=== PATIENT | female | born 1970 | race Caucasian/White ===

== ENCOUNTER 2016-06-20 10:27 | Emergency (ER) | payer OTHER ==
[~2016-06-20] VITALS: Ht 154.9 cm; Wt 83.5 kg
[~2016-06-20 10:27] MED LIST: ACCUNEB 0.1.25 MG/3; ADIPEX-P37.5 MG PO; AMOXICILLIN500 M2 PO; BENTYL10 MG PO; CLARITIN10 MG PO; COMBIVENT1 ARO; DIFLUCAN150 MG PO; LASIX40 MG PO; MEDROL DOSEPAK4 MG PO; PRILOSEC20 M1; PRILOSEC20 M1 PO; PROTONIX20 MG PO; VICODIN 5/500 505 MG; VICODIN 5/500 505 MG PO; VOLTAREN50 M1 PO; VOLTAREN50 MG PO; ZITHROMAX Z PA250 MG PO; ZOFRAN4 MG PO
[2016-06-20] MEDS ORDERED: VITAMIN D50000 I3 PO (10:45)
[2016-06-20 12:14] LABS: BILIRUBIN NEGATIVE (NEGATIVE); BLOOD NEGATIVE (NEGATIVE); CLARITY SL CLOUDY (CLEAR); COLOR YELLOW (YELLOW); GLUCOSE NEGATIVE (NEGATIVE); KETONE NEGATIVE (NEGATIVE); LEUKO ESTERASE NEGATIVE (NEGATIVE); NITRITE NEGATIVE (NEGATIVE); PROTEIN NEGATIVE (NEGATIVE); SPECIFIC GRAVITY >= 1.030 (1.005-1.030); UROBILINOGEN 0.2 E.U./dl (0.2-1.0)
[2016-06-20 12:50] LABS: BACTERIA TRACE; MUCOUS TRACE; URINE REFLEX COMMENT NO (NO)
[2016-06-20] MEDS ORDERED: NAPROSYN500 MG PO (12:53)
[2016-06-20] MEDS ORDERED: MEDROL DOSEPAK4 MG PO (12:53)
[2016-06-20] MEDS ORDERED: CYCLOBENZAPRINE10 MG PO (12:53)
== END 2016-06-20 13:20 | disposition home or self-care (01) ==
LOC: ED 10:27
PROVIDERS: Nurse Practitioner Family
DX: M54.5 Low back pain (principal); Z90.49 Acquired absence of other specified parts of digestive tract

== ENCOUNTER 2019-02-05 08:37 | Emergency (ER) | payer OTHER ==
[~2019-02-05] VITALS: Ht 157.4 cm; Wt 74.8 kg
--- NOTE | ~2019-02-05 | EKG ---
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
[~2019-02-05 08:37] MED LIST changes: +CYCLOBENZAPRINE10 MG PO; +NAPROSYN500 MG PO; +VITAMIN D50000 I3 PO
[2019-02-05 08:59] LABS: BASO # 0.1 10*3/uL (0.0-0.1); BASO % 0.6 % (0.0-1.0); EOS # 0.2 10*3/uL (0.0-0.4); EOS % 1.7 % (1.0-4.0); HEMATOCRIT 42.9 % (37.0-47.0); HEMOGLOBIN 13.7 g/dl (12.0-16.0); LYMPH % 23.4 % (27.0-41.0); MEAN CELL VOLUME 89.7 fl (81.0-99.0); MEAN CORPUSCULAR HGB 28.7 pg (27.0-31.0); MEAN CORPUSCULAR HGB CONC 31.9 g/dl (33.0-37.0); MEAN PLATELET VOLUME 12.7 fl (9.6-12.3); MONO # 0.4 10*3/uL (0.1-1.0); MONO % 4.5 % (3.0-9.0); NEUT % 69.6 % (47.0-73.0); PLATELET COUNT AUTOMATED 243 10*3/uL (130-400); RED BLOOD COUNT 4.78 10*6/uL (4.10-5.10); RED CELL DISTRI WIDTH 13.9 % (0-14.5); WHITE BLOOD COUNT 8.7 10*3/uL (4.8-10.8)
[2019-02-05 09:14] LABS: ACT PARTIAL THROMBO TIME 26.1 SECONDS (20.0-32.1); INTERNATIONAL NORM RATIO 0.9 (2.0-3.5)
[2019-02-05 09:17] LABS: ALBUMIN 3.8 gm/dl (3.1-4.5); ALKALINE PHOSPHATASE 105 U/L (45-117); BUN 14 mg/dl (7-24); CHLORIDE 108 mmol/L (98-107); CREATININE 0.87 mg/dL (0.55-1.02); SGOT/AST 9 IU/L (3-35); SGPT/ALT 19 U/L (12-78); SODIUM 140 mmol/L (136-145); TOTAL PROTEIN 7.8 gm/dL (6.4-8.2)
[2019-02-05 09:18] LABS: TROPONIN I < 0.015 ng/ml (<0.045)
[2019-02-05] MEDS ORDERED: SPIRIVA -- 3018 MCG INH (09:30)
[2019-02-05] MEDS ORDERED: VIBRAMYCIN100 MG PO (09:30)
[2019-02-05] MEDS ORDERED: PROVENTIL HFA6.7 GM INH (09:30)
[2019-02-05] MEDS ORDERED: PREDNISONE50 MG PO (09:30)
[2019-02-05 09:34] VITALS: BP 155/77
[2019-02-05] MEDS ORDERED: TESSALON PERLE100 MG PO (10:01)
== END 2019-02-05 10:00 | disposition home or self-care (01) ==
LOC: ED 08:37
PROVIDERS: Emergency Medicine
DX: J44.1 Chronic obstructive pulmonary disease with (acute) exacerbation (principal); K21.9 Gastro-esophageal reflux disease without esophagitis; Z87.891 Personal history of nicotine dependence; Z79.899 Other long term (current) drug therapy

== ENCOUNTER → 2019-12-06 | Outpatient (CLI) | payer OTHER ==
[~2019-12-06] MED LIST changes: +PREDNISONE50 MG PO; +PROVENTIL HFA6.7 GM INH; +SPIRIVA -- 3018 MCG INH; +TESSALON PERLE100 MG PO; +VIBRAMYCIN100 MG PO
== END | disposition home or self-care (01) ==
LOC: CT 11-19 09:00
PROVIDERS: ATTEND Nurse Practitioner Primary Care
DX: R19.7 Diarrhea, unspecified (principal); R11.0 Nausea; R10.84 Generalized abdominal pain

== ENCOUNTER → 2020-06-02 | Outpatient (CLI) | payer OTHER | END | disposition home or self-care (01) | LOC: COVID19 12:57 | PROVIDERS: ATTEND Nurse Practitioner Primary Care | DX: Z20.822 Contact with and (suspected) exposure to COVID-19 (principal); J40 Bronchitis, not specified as acute or chronic ==

== ENCOUNTER → 2020-10-18 | Outpatient (CLI) | payer OTHER ==
[2020-10-18 09:15] LABS: HEMATOCRIT 44.3 % (37.0-47.0); MEAN CELL VOLUME 90.2 fl (81.0-99.0); MEAN CORPUSCULAR HGB 29.1 pg (27.0-31.0); MEAN CORPUSCULAR HGB CONC 32.3 g/dl (33.0-37.0); MEAN PLATELET VOLUME 12.8 fl (9.6-12.3); RED BLOOD COUNT 4.91 10*6/uL (4.10-5.10); RED CELL DISTRI WIDTH 13.5 % (0-14.5); WHITE BLOOD COUNT 7.7 10*3/uL (4.8-10.8)
[2020-10-18 09:52] LABS: ALBUMIN 3.5 gm/dl (3.1-4.5); BUN 12 mg/dl (7-24); CHLORIDE 110 mmol/L (98-107); POTASSIUM 4.3 mmol/L (3.5-5.1); SGOT/AST 11 IU/L (3-35); SGPT/ALT 18 U/L (12-78); SODIUM 137 mmol/L (136-145); TOTAL PROTEIN 7.3 gm/dL (6.4-8.2)
[2020-10-18 09:53] LABS: ALKALINE PHOSPHATASE 101 U/L (45-117)
[2020-10-19 16:18] LABS: ATYPICAL PANCA <1:20 titer (Neg:<1:20)
[2020-10-20 12:07] LABS: SACCHAROMYCES CEREVISIAE IGA <20.0 Units (0.0-24.9)
== END | disposition home or self-care (01) ==
LOC: LAB 08:21
PROVIDERS: ATTEND Nurse Practitioner Family
DX: R19.7 Diarrhea, unspecified (principal)

== ENCOUNTER 2021-04-16 11:45 | Emergency (ER) | payer OTHER ==
[~2021-04-16] VITALS: Wt 72.6 kg
[2021-04-16 11:56] VITALS: BP 132/88
[2021-04-16] MEDS ORDERED: KENALOG 0.025%15 GM T (12:05)
== END 2021-04-16 12:08 | disposition home or self-care (01) ==
LOC: ED 11:45
DX: R21 Rash and other nonspecific skin eruption (principal); Z98.890 Other specified postprocedural states; Z79.899 Other long term (current) drug therapy

== ENCOUNTER → 2022-05-25 | Outpatient (CLI) | payer OTHER ==
[~2022-05-25] MED LIST changes: +KENALOG 0.025%15 GM T
== END | disposition home or self-care (01) ==
LOC: RAD 14:25
PROVIDERS: ATTEND Nurse Practitioner Family
DX: S49.92XA Unspecified injury of left shoulder and upper arm, initial encounter (principal); S29.9XXA Unspecified injury of thorax, initial encounter; X58.XXXA Exposure to other specified factors, initial encounter; Y93.89 Activity, other specified; Y92.89 Other specified places as the place of occurrence of the external cause; Y99.8 Other external cause status

== ENCOUNTER → 2022-11-28 | Outpatient (CLI) | payer OTHER | END | disposition home or self-care (01) | LOC: MAMMO 11-16 08:00 → US 11-16 09:00 → MAMMO 00:15 | PROVIDERS: ATTEND Internal Medicine | DX: N63.20 Unspecified lump in the left breast, unspecified quadrant (principal); R22.30 Localized swelling, mass and lump, unspecified upper limb; R59.9 Enlarged lymph nodes, unspecified ==

== ENCOUNTER 2024-07-16 10:14 | Inpatient (IN) | payer OTHER ==
[~2024-07-16] VITALS: Ht 157.4 cm; Wt 55.4 kg
[2024-07-16 10:18] VITALS: BP 120/83
[2024-07-16] MEDS ORDERED: TOPIRAMATE25 M3 PO (10:37)
[2024-07-16 11:07] LABS: BASO % 0.5 % (0.0-1.0); EOS # 0.1 10*3/uL (0.0-0.4); EOS % 1.4 % (1.0-4.0); HEMATOCRIT 45.8 % (37.0-47.0); MEAN CELL VOLUME 90.9 fl (81.0-99.0); MEAN CORPUSCULAR HGB 29.6 pg (27.0-31.0); MEAN CORPUSCULAR HGB CONC 32.5 g/dl (33.0-37.0); MEAN PLATELET VOLUME 11.5 fl (9.6-12.3); MONO # 0.5 10*3/uL (0.1-1.0); NEUT # 4.8 10*3/uL (2.3-7.9); NEUT % 62.7 % (47.0-73.0); PLATELET COUNT AUTOMATED 287 10*3/uL (130-400); RED BLOOD COUNT 5.04 10*6/uL (4.10-5.10); RED CELL DISTRI WIDTH 13.6 % (0-14.5); WHITE BLOOD COUNT 7.6 10*3/uL (4.8-10.8)
[2024-07-16 11:22] LABS: ACT PARTIAL THROMBO TIME 25.5 SECONDS (20.0-32.1)
[2024-07-16 11:27] LABS: ALKALINE PHOSPHATASE 101 U/L (46-116); BUN 14 mg/dl (9-23); CHLORIDE 108 mmol/L (98-107); CPK 82 U/L (34-171); LIPASE 77 U/L (12-53); POTASSIUM 3.7 mmol/L (3.4-5.1); SGPT/ALT 10 U/L (5-49); TOTAL PROTEIN 7.2 gm/dL (6.0-8.0)
[2024-07-16 11:37] LABS: ETHYL ALCOHOL < 3.0 mg/dl (<3)
[2024-07-16] MEDS ORDERED: diazePAM 10 MG/2 ML SYR IV ONE (11:45)
[2024-07-16] MEDS ORDERED: SODIUM CHLORIDE 0.9% 1,000 ML IV ONE (11:45)
[2024-07-16 13:50] LABS: BILIRUBIN Negative (Negative); BLOOD Negative (Negative); CLARITY Clear (Clear); COLOR Yellow (Yellow); GLUCOSE Negative (Negative); KETONE Negative (Negative); LEUKO ESTERASE Negative (Negative); NITRITE Negative (Negative); UROBILINOGEN 0.2 E.U./dl (0.0-1.0)
[2024-07-16 13:54] LABS: URINE AMPHETAMINES Negative (1000ng/ml); URINE BARBITURATES Negative (200ng/ml); URINE BENZODIAZEPINES Positive (200ng/ml); URINE CANNABINOIDS (THC) Positive (50ng/ml); URINE COCAINE Negative (300ng/ml); URINE METHADONE Negative (300ng/ml); URINE OPIATES Positive (300ng/ml); URINE PHENCYCLIDINE Negative (25ng/ml)
[2024-07-16] MEDS ORDERED: hydrOXYzine hydrochloride 50 MG/ML VIAL IM PRN (14:50)
[2024-07-16] MEDS ORDERED: LORazepam 1 MG TAB PO PRN (14:50)
[2024-07-16] MEDS ORDERED: Magnesium Hydroxide 30 ML UDC PO PRN (14:50)
[2024-07-16] MEDS ORDERED: MG-AL HYDROXIDE/SIMETICONE 30 ML UDC PO PRN (14:50)
[2024-07-16] MEDS ORDERED: ACETAMINOPHEN 325 MG TAB PO PRN (14:50)
[2024-07-16 15:28] VITALS: BP 125/71
[2024-07-16] MEDS ORDERED: Acetaminophen/Hydrocodone ES 7.5/325 tablet PO PRN (16:05)
[2024-07-16 17:02] LABS: CHOLESTEROL 202 mg/dL (<200); LDL CHOLESTEROL 117 mg/dL (9-159); TRIGLYCERIDES 98 mg/dl (<150)
== END 2024-07-16 21:16 | disposition left against medical advice (07) | DRG 755 ==
LOC: ED 10:14 → 3N 12:32 → EDHOLD 12:32 → 3N 14:37
PROVIDERS: Emergency Medicine; Student in an Organized Health Care Education/Training Program; ADMIT Psychiatry & Neurology Psychiatry; ATTEND Psychiatry & Neurology Psychiatry
DX: F43.21 Adjustment disorder with depressed mood (principal); E87.20 Acidosis, unspecified; F41.8 Other specified anxiety disorders; R45.851 Suicidal ideations; F17.210 Nicotine dependence, cigarettes, uncomplicated; R73.9 Hyperglycemia, unspecified; E87.8 Other disorders of electrolyte and fluid balance, not elsewhere classified; J44.9 Chronic obstructive pulmonary disease, unspecified; F12.90 Cannabis use, unspecified, uncomplicated; G89.29 Other chronic pain; Z96.642 Presence of left artificial hip joint; Z71.6 Tobacco abuse counseling; Z79.51 Long term (current) use of inhaled steroids; Z79.899 Other long term (current) drug therapy; Z98.891 History of uterine scar from previous surgery; Z90.49 Acquired absence of other specified parts of digestive tract; Z82.49 Family history of ischemic heart disease and other diseases of the circulatory system